=== PATIENT | female | born 1995 | race African-American/Black ===

== ENCOUNTER 2016-11-04 17:01 | Emergency (ER) | payer BC, OTHER ==
[~2016-11-04] VITALS: Ht 165.1 cm; Wt 97.1 kg
[~2016-11-04 17:01] MED LIST: FLOVENT DISKUS50 MCG INH; NAPROSYN500 MG PO; NORCO 5-325 TA1 EACH PO; PREDNISONE 20 M20 MG PO; PRENATAL COMPL1 EACH PO; PROVENTIL HFA6.7 G1 INH; TRINATE TABLET1 TAB PO
[2016-11-04] MEDS ORDERED: FLONASE 0.05%50 MCG NASAL (17:39)
== END 2016-11-04 18:01 | disposition home or self-care (01) ==
LOC: ER 17:01
DX: O99.519 Diseases of the respiratory system complicating pregnancy, unspecified trimester (principal); J45.909 Unspecified asthma, uncomplicated; E28.2 Polycystic ovarian syndrome; Z3A.31 31 weeks gestation of pregnancy; Z91.018 Allergy to other foods